=== PATIENT | female | born 1990 | race Caucasian/White ===

== ENCOUNTER 2018-02-21 21:40 | Emergency (ER) | payer MEDICAID ==
[~2018-02-21] VITALS: Ht 165.1 cm; Wt 61.2 kg
[2018-02-21 21:49] VITALS: BP 105/68
[2018-02-21 23:10] VITALS: BP 111/63
== END 2018-02-21 23:10 | disposition home or self-care (01) ==
LOC: MED 21:40
DX: S29.012A Strain of muscle and tendon of back wall of thorax, initial encounter (principal); X58.XXXA Exposure to other specified factors, initial encounter; Y93.89 Activity, other specified; Y92.89 Other specified places as the place of occurrence of the external cause; Y99.8 Other external cause status
CPT/HCPCS: 72072; 81002; 81025; 99284